=== PATIENT | male | born 2005 | race Caucasian/White ===

== ENCOUNTER 2025-07-08 09:37 | Emergency (ER) | payer OTHER ==
[~2025-07-08] VITALS: Ht 188 cm; Wt 90.8 kg
[2025-07-08 11:59] LABS: BASO # 0.1 10^3/uL (0.0-0.2); BASO % 1.0 % (0.0-1.0); EOS # 1.0 10^3/uL (0.0-0.5); EOS % 6.8 % (0.0-3.0); LYMPH # 2.3 10^3/uL (1.5-5.0); LYMPH % 15.5 % (24.0-44.0); MONO # 0.5 10^3/uL (0.0-0.8); MONO % 3.7 % (2.0-8.0); NEUTROPHILS # 10.6 10^3/uL (1.5-8.5); NEUTROPHILS % 72.5 % (36.0-66.0); PLATELET COUNT, AUTOMATED 233 10^3/uL (150-450)
[2025-07-08] MEDS: diphenhydrAMINE 50 MG/ML VIAL IV ONE (12:18)
[2025-07-08] MEDS: NS (Normal Saline) 0.9% 1,000 ML IV ONE (12:19)
[2025-07-08] MEDS: KETOROLAC 30 MG/ML 1 ML VIAL IV ONE (12:20)
[2025-07-08 12:54] VITALS: BP 128/75; TEMP 97; O2SAT 99
[2025-07-08 13:07] LABS: ALT/SGPT 24 U/L (7.0-40); AST/SGOT 26 U/L (<34); CALCIUM LEVEL 9.7 MG/DL (8.5-10.1); CARBON DIOXIDE LEVEL 30.5 MMOL/L (20-31); CHLORIDE LEVEL 100 MMOL/L (98-107); CREATININE FOR GFR 0.97 MG/DL (0.70-1.30); GLOMERULAR FILTRATION RATE > 90.0 (>60); POTASSIUM SERUM 4.4 MMOL/L (3.5-5.1); SODIUM LEVEL 141 MMOL/L (136-145)
[2025-07-08 15:03] LABS: GC DNA AMPLIFICATION NEGATIVE (NEGATIVE); Trichomonas vaginalis (AMP) NOT DETECTED (NEGATIVE)
[2025-07-08] MEDS ORDERED: AMOX500C PO (15:13)
[2025-07-08] MEDS ORDERED: BENZ200C70 PO (15:58)
== END 2025-07-08 16:17 | disposition home or self-care (01) ==
LOC: M ED 09:37
DX: J20.9 Acute bronchitis, unspecified (principal); Z79.2 Long term (current) use of antibiotics; Z79.899 Other long term (current) drug therapy
CPT/HCPCS: 36415; 71046; 80048; 80076; 85025; 87389; 87486; 87581; 87633; 87661; 87798; 87810; 87850; 87880; 96361; 96374; 96375; 99284; J1200; J1885; J2765

== ENCOUNTER 2025-07-17 10:31 | Emergency (ER) | payer OTHER ==
[~2025-07-17] VITALS: Ht 188 cm; Wt 97.3 kg
[~2025-07-17 10:31] MED LIST: AMOX500C PO; BENZ200C70 PO
[2025-07-17] MEDS: FAMOTIDINE 20 MG/2 ML VIAL IVP ONE (12:00)
[2025-07-17] MEDS: ONDANSETRON 4MG 2ML VIAL IV ONE (12:00)
[2025-07-17] MEDS: diphenhydrAMINE 50 MG/ML VIAL IV ONE (12:00)
[2025-07-17 13:02] VITALS: BP 114/58; TEMP 96.9; O2SAT 98
[2025-07-17] MEDS ORDERED: CETI10CA13 PO (13:11)
[2025-07-17] MEDS ORDERED: PRED20TA PO (13:11)
== END 2025-07-17 13:22 | disposition home or self-care (01) ==
LOC: M ED 10:31
DX: T78.40XA Allergy, unspecified, initial encounter (principal); R21 Rash and other nonspecific skin eruption; Z79.2 Long term (current) use of antibiotics; Z79.52 Long term (current) use of systemic steroids; Z79.899 Other long term (current) drug therapy
CPT/HCPCS: 96374; 99284; J1200; J1308; J2405; J2919